=== PATIENT | male | born 1990 | race Hispanic/Latino ===

== ENCOUNTER 2024-05-13 20:20 | Emergency (ER) | payer BC ==
[~2024-05-13] VITALS: Ht 160 cm; Wt 68.0 kg
[2024-05-13] MEDS: PANTOPrazole 40 MG/VIAL IVP ONE (20:49)
[2024-05-13] MEDS: morPHINE 4 MG SYG IVP ONE (20:49)
[2024-05-13] MEDS: ondanSETRON 4MG INJ IVP ONE (20:51)
[2024-05-13 20:57] LABS: BASOPHILS # (AUTO) 0.04 K/uL (0.00-0.20); BASOPHILS % (AUTO) 0.5 % (0.0-5.0); EOSINOPHILS # (AUTO) 0.02 K/uL (0.00-0.70); EOSINOPHILS % (AUTO) 0.2 % (0.0-8.0); IMMATURE GRANULOCYTE ABSOLUTE 0.04 K/uL (0-1); LYMPHOCYTES # (AUTO) 3.2 K/uL (1.0-4.8); LYMPHOCYTES % (AUTO) 38.5 % (21.0-51.0); MEAN CORPUSCULAR HGB CONC 34.1 g/dL (32.0-36.0); MONOCYTES # (AUTO) 0.5 K/uL (0.1-1.0); MONOCYTES % (AUTO) 5.8 % (3.0-13.0); NEUTROPHILS # (AUTO) 4.6 K/uL (1.8-7.7); NEUTROPHILS % (AUTO) 54.5 % (40.0-77.0); PLATELET COUNT (AUTO) 297 K/uL (130-400); WHITE BLOOD COUNT (AUTO) 8.4 K/uL (4.8-10.8)
[2024-05-13 21:01] LABS: ADD UA MICROSCOPIC NO; APPEARANCE,URINE CLEAR (CLEAR); BILIRUBIN,URINE NEGATIVE (NEGATIVE); COLOR,URINE COLORLESS (YELLOW); GLUCOSE, URINE (UA) NEGATIVE (NEGATIVE); KETONES,URINE NEGATIVE (NEGATIVE); LEUKOCYTE ESTERASE ,URINE NEGATIVE Leu/uL (NEGATIVE); NITRATE,URINE NEGATIVE (NEGATIVE); OCCULT BLOOD,URINE NEGATIVE (NEGATIVE); PROTEIN,URINE NEGATIVE (NEGATIVE); UROBILINOGEN,URINE 0.2 mg/dL (0.2-1.0)
[2024-05-13 21:08] LABS: AMPHET/METH SCREEN,URINE NEGATIVE (NEGATIVE); BARBITURATE SCREEN, URINE NEGATIVE (NEGATIVE); BENZODIAZEPINES SCREEN,URINE NEGATIVE (NEGATIVE); CANNABINOID SCREEN,URINE NEGATIVE (NEGATIVE); COCAINE SCREEN,URINE NEGATIVE (NEGATIVE); CREATININE 0.9 mg/dL (0.5-1.3); OPIATE SCREEN,URINE NEGATIVE (NEGATIVE); PHENCYCLIDINE SCREEN,URINE NEGATIVE (NEGATIVE)
[2024-05-13 21:13] LABS: ALBUMIN 4.1 g/dL (3.5-5.0); BILIRUBIN,DIRECT 0.2 mg/dL (0.0-0.3); BILIRUBIN,TOTAL 0.3 mg/dL (0.2-1.0); TOTAL PROTEIN, SERUM 8.4 g/dL (6.0-8.3)
[2024-05-13] MEDS ORDERED: IOHEXOL-350 75 ML VIAL IV ONE (21:26)
[2024-05-13] MEDS: 0.9%NACL 1000ML 1,000 ML IV ONE (21:29)
[2024-05-13] MEDS: hydroMORPHone 0.5 MG SYG (0.5MG/0.5ML) IVP ONE (21:33)
[2024-05-13 21:41] VITALS: TEMP 97
--- NOTE | 2024-05-13 22:38 | HMCIMG ---
CT ABDOMEN/PELVIS W/CONTRAST HISTORY: Upper abdominal pain COMPARISON: None TECHNIQUE: Multiple sequential axial images of the abdomen and pelvis were obtained from the dome of the diaphragm through symphysis pubis. Patient was given 75 cc of Omnipaque through intravenous route. Oral contrast was not given. FINDINGS: No pleural effusion is seen bilaterally. There is no evidence of parenchymal disease or pulmonary nodule of the visualized lower lungs. Degenerative changes of the thoracolumbar spine are present. The heart is not enlarged. Liver measures 14.3 cm. Postcholecystectomy changes are seen. The liver, spleen, adrenal glands and pancreas are unremarkable. There is no evidence of hydronephrosis bilaterally. No evidence of renal stone is seen. Fecal material is seen in the colon. There are normal size retroperitoneal and mesenteric lymph nodes. No ascites is seen. No CT evidence of acute appendicitis is seen. Clinical correlation is recommended. Pelvic sidewalls are symmetric bilaterally. Bladder is well distended without wall thickening. IMPRESSION: 1. No acute findings. CT was performed with one or more following dose reduction techniques: automated exposure control, adjustment of the mA and kv according to patient's size, or use of a iterative reconstruction technique.
[2024-05-13 22:59] VITALS: BP 138/80; PULSE 84; RESP 18; O2SAT 97
[2024-05-13] MEDS ORDERED: ONDA-243 PO (23:11)
[2024-05-13] MEDS ORDERED: PANT40TA55 PO (23:11)
--- NOTE | 2024-05-13 23:12 | ERN ---
ED Note History of Present Illness Stated Complaint: CP Chief Complaint: Abdominal Pain Time Seen by MD: 20:23 Time Seen by Midlevel: 20:33 Dictation: The patient is a 34-year-old with a history of cholecystectomy who presents to the emergency department with complaints of epigastric abdominal pain onset 20 minutes prior to arrival. Patient denies any nausea, vomiting, diarrhea, constipation, fevers. Allergies: Coded Allergies: No Known Allergies (Unverified Allergy, Unknown, 05/13/24) Past Medical History Past Medical History: No Pertinent History Surgical History: Cholecystectomy RN Note Reviewed/Agreed w/PFSH: Yes Review of System Dictation Constitutional: Negative for fever,chills, and weight loss Eyes: Negative for injury, pain,redness, and discharge ENT: Negative for injury,pain or swelling Cardiovascular: Negative for chest pain, palpitations, and edema Respiratory: Negative for shortness of breath, cough, and wheezing, Abdomen/GI: Negative for nausea, vomiting, diarrhea, and constipation positive for abdominal pain Back: Negative for injury and pain : Negative for injury, bleeding and discharge MS/Extremity: Negative for injury and deformity Skin: Negative for rash, and discoloration Neuro: Negative for headache, weakness, numbness, tingling, and seizure Psych: Negative for suicide ideation, homicidal ideation, and hallucinations Initial Vital Sign VS Vital Signs Date Time Temp Pulse Resp B/P (MAP) Pulse Ox O2 Delivery O2 Flow Rate FiO2 05/13/24 20:21 97.3 104 20 131/82 100 Room Air 05/13/24 20:41 0 21 Physical Exam Dictation Vital Signs reviewed General Appearance: Alert, oriented x 3, no acute distress, well developed, nourished. Head and Face: non-traumatic. Eyes: PERRL, pink conjunctivas, eyelid no trauma, anterior chamber with arcus senilis. Ears: Pinnas intact and no signs of trauma or erythema ear canals clear and no discharge TM no erythema Nose: No discharge, no bleeding. Oropharynx: Mouth normal, tongue pink. pharynx clear,no erythema, tonsils no exudates, no abscesses noted, mucous membrane moist Neck: Supple, non-tender, no thyromegaly, no masses, no JVD, no bruits Breast:Deferred Chest:No tenderness, no crepitus, no paradoxical movement, no retractions Lungs:Clear, well-ventilated, symmetric, no rales, no wheezing, no rhonchi, no stridor, good breath sounds bilaterally Heart: Regular rate, regular rhythm, no murmur, no gallops Vascular: no peripheral edema, Abdomen: Soft, positive bowel sounds, nondistended, no guarding, nontender, no rebound, no masses no hepatomegaly, no splenomegaly, no Zuniga's sign, no hernias. Rectal: Deferred Genital: Deferred Neurological: Normal speech, motor function intact, sensory function intact Musculoskeletal: Neck nontender, full range of motion, back nontender, full range of motion, Extremities: nontender, full range of motion Skin: Color pink, dry, no turgor, no rash, no lacerations, no abrasions, no contusions. Lymphatic: Deferred Results (Laboratory/Radiology) Laboratory/Radiology Laboratory Tests Test 05/13/24 20:47 White Blood Count 8.4 K/uL (4.8-10.8) Red Blood Count 6.00 MIL/uL (4.50-6.20) Hemoglobin 17.4 g/dL (14.0-18.0) Hematocrit 51.0 % (42-54) Mean Corpuscular Volume 85.0 fL (79-99) Mean Corpuscular Hemoglobin 29.0 pg (27.0-33.0) Mean Corpuscular Hemoglobin Concent 34.1 g/dL (32.0-36.0) Red Cell Distribution Width 12.0 % (11.0-15.5) Platelet Count 297 K/uL (130-400) Mean Platelet Volume 10.2 fL (7.5-10.5) Immature Granulocyte % (Auto) 0.5 % (0-1) Neutrophils (%) (Auto) 54.5 % (40.0-77.0) Lymphocytes (%) (Auto) 38.5 % (21.0-51.0) Monocytes (%) (Auto) 5.8 % (3.0-13.0) Eosinophils (%) (Auto) 0.2 % (0.0-8.0) Basophils (%) (Auto) 0.5 % (0.0-5.0) Neutrophils # (Auto) 4.6 K/uL (1.8-7.7) Lymphocytes # (Auto) 3.2 K/uL (1.0-4.8) Monocytes # (Auto) 0.5 K/uL (0.1-1.0) Eosinophils # (Auto) 0.02 K/uL (0.00-0.70) Basophils # (Auto) 0.04 K/uL (0.00-0.20) Absolute Immature Granulocyte (auto 0.04 K/uL (0-1) Nucleated Red Blood Cells 0.0 % (0.0-0.19) Urine Color COLORLESS (YELLOW) Urine Appearance CLEAR (CLEAR) Urine pH 5.0 (5.0-8.0) Urine Specific Muse 1.005 (1.001-1.031) Urine Protein NEGATIVE mg/dL (NEGATIVE) Urine Glucose (UA) NEGATIVE mg/dL (NEGATIVE) Urine Ketones NEGATIVE mg/dL (NEGATIVE) Urine Occult Blood NEGATIVE (NEGATIVE) Urine Nitrate NEGATIVE (NEGATIVE) Urine Bilirubin NEGATIVE mg/dL (NEGATIVE) Urine Urobilinogen 0.2 mg/dL (0.2-1.0) Urine Leukocyte Esterase NEGATIVE Missy/uL Sodium Level 138 mmol/L (136-145) Potassium Level 4.0 mmol/L (3.5-5.1) Chloride Level 100 mmol/L (101-111) L Carbon Dioxide Level 28 mmol/L (21-32) Blood Urea Nitrogen 12 mg/dL (7-18) Creatinine 0.9 mg/dL (0.5-1.3) Glomerular Filtration Rate Calc 116 mL/min (>90) Random Glucose 95 mg/dL (70-105) Total Calcium 8.9 mg/dL (8.5-10.1) Total Bilirubin 0.3 mg/dL (0.2-1.0) Direct Bilirubin 0.2 mg/dL (0.0-0.3) Aspartate Amino Transf (AST/SGOT) 52 U/L (10-37) H Alanine Aminotransferase (ALT/SGPT) 54 U/L (12-78) Alkaline Phosphatase 71 U/L (50-136) Total Protein 8.4 g/dL (6.0-8.3) H Albumin 4.1 g/dL (3.5-5.0) Lipase 130 U/L (16-77) H Urine Opiates Screen NEGATIVE (NEGATIVE) Urine Barbiturates Screen NEGATIVE (NEGATIVE) Urine Phencyclidine Screen NEGATIVE (NEGATIVE) Urine Amphetamines Screen NEGATIVE (NEGATIVE) Urine Benzodiazepines Screen NEGATIVE (NEGATIVE) Urine Cocaine Screen NEGATIVE (NEGATIVE) Urine Marijuana (THC) Screen NEGATIVE (NEGATIVE) Labs Reviewed?: Yes ED Course ED Course Orders Procedure Category Date Status Time Cbc With Differential LAB 05/13/24 Complete 20:33 Urinalysis Profile LAB 05/13/24 Complete 20:33 0.9%Nacl 1000ml (Ns PHA 05/13/24 Complete 1000ml) 21:00 Morphine 4mg Syg PHA 05/13/24 Complete (Morphine 4mg Syg) 21:00 Ondansetron 4mg Inj PHA 05/13/24 Complete (Zofran 4mg Inj) 21:00 Pantoprazole 40mg Inj PHA 05/13/24 Complete (Protonix 40mg Inj 21:00 Lipase LAB 05/13/24 Complete 20:33 Basic Metabolic Panel LAB 05/13/24 Complete 20:33 Hepatic Function Panel LAB 05/13/24 Complete 20:33 Drug Screen Urine LAB 05/13/24 Complete 20:33 Ct Abdomen/Pelvis CT 05/13/24 Resulted W/Contrast 21:14 Hydromorphone 0.5mg PHA 05/13/24 Complete Syg (Dilaudid 0.5mg 21:30 Iohexol (Omnipaque) PHA 05/13/24 Complete 21:26 Current Medications Medications (Trade) Dose Ordered Sig/Xavier Route PRN Reason Start Time Stop Time Status Last Admin Dose Admin Hydromorphone HCl (DiLAUDid 0.5MG INJ) 0.5 mg ONCE ONCE IVP 05/13/24 21:30 05/13/24 21:31 DC 05/13/24 21:33 Iohexol (Omnipaque) 75 ml STK-MED ONCE IV 05/13/24 21:26 05/13/24 21:28 DC Morphine Sulfate (morPHINE 4MG SYG) 4 mg ONCE ONCE IVP 05/13/24 21:00 05/13/24 21:01 DC 05/13/24 20:49 Ondansetron HCl (zoFRAN 4MG INJ) 4 mg ONCE ONCE IVP 05/13/24 21:00 05/13/24 21:01 DC 05/13/24 20:51 Pantoprazole Sodium (PROTonix 40MG INJ) 40 mg ONCE ONCE IVP 05/13/24 21:00 05/13/24 21:01 DC 05/13/24 20:49 Sodium Chloride 1,000 ml @ 0 mls/hr ONCE ONCE IV 05/13/24 21:00 05/13/24 21:01 DC 05/13/24 21:29 Vital Signs Date Time Temp Pulse Resp B/P (MAP) Pulse Ox O2 Delivery O2 Flow Rate FiO2 05/13/24 22:59 84 18 138/80 97 Room Air* 0 21 05/13/24 21:41 97.0 90 20 143/84 97 Room Air* 0 21 05/13/24 20:41 97.3 104 18 117/78 97 Room Air* 0 21 05/13/24 20:21 97.3 104 20 131/82 100 Room Air Medical Decision Making MDM The patient is a 34-year-old with a history of cholecystectomy who presents to the emergency department with complaints of epigastric abdominal pain onset 20 minutes prior to arrival. Patient denies any nausea, vomiting, diarrhea, constipation, fevers. CBC showed no leukocytosis, no anemia, chemistry showed mild hypochloremia, slightly elevated lipase. CT abdomen showed no acute pathology. Patient reassessed and reports feeling better. Spoke to patient about the possibility of admission for slightly elevated lipase. At this time patient does not want to be admitted in with rather be discharged home. Patient reports he is flying out of town. Patient no acute distress, nontoxic appearance. Differential diagnosis: Gastritis, gastroenteritis, pancreatitis, electrolyte imbalance Need for hospitalization: Patient does not meet criteria for hospitalization. There are no social concerns with this patient. DX & DISP Disposition: Discharge Departure Impression: Primary Impression: Gastritis Additional Impressions: Elevated lipase, Abdominal pain Condition: Stable Scripts Ondansetron (Ondansetron Odt) 4 Mg Tab.rapdis 4 MG PO Q6HPRN PRN for nausea, #16 TAB 0 Refills Prov: OHSOULEYMANE PATTERN ILLUSTRATOR 05/13/24 Pantoprazole Sodium (Protonix) 40 Mg Ectab 1 TAB PO DAILY for 30 Days, #30 TAB 0 Refills Prov: OHSOULEYMANE PATTERN ILLUSTRATOR 05/13/24 Additional Instructions: Please follow up with your primary doctor in 1-2 days. Please return to ER if symptoms worsen. FOLLOW-UP WITH PRIMARY CARE PROVIDER IN 1 TO 2 DAYS. TAKE MEDICATIONS DIRECTED HERE IN THE EMERGENCY ROOM. OKAY TO CONTINUE HOME MEDICATIONS UNLESS OTHERWISE DISCUSSED DURING YOUR VISIT IN THE EMERGENCY ROOM TODAY. RETURN TO YOUR NEAREST EMERGENCY ROOM IF SYMPTOMS WORSEN OR IF THERE IS NO IMPROVEMENT. CALL 911 IF YOU NEED IMMEDIATE ASSISTANCE. TAKE TYLENOL OR MOTRIN [id number] NEEDED AND IF NO CONTRAINDICATIONS ARE PRESENT. INCREASE ORAL HYDRATION. A WOUND CULTURE OR URINE CULTURE WAS ORDERED HERE IN THE EMERGENCY ROOM DEPARTMENT PLEASE FOLLOW-UP WITH PRIMARY CARE PROVIDER AND ADVISE THEM TO GET REPEAT PORTS FROM OUR FACILITY. IF YOU HAD ANY CASPER WRAP/SPLINTS THAT WERE APPLIED HERE, PLEASE DO NOT REMOVE THEM UNTIL YOU SEE YOUR PRIMARY CARE OR SPECIALTY. Referrals: SELF,REFERRAL (PCP) Time of Disposition: 23:11 I have reviewed the case, and I agree with, Diagnosis and Plan SOULEYMANE [place] May 13, 2024 23:12
== END 2024-05-13 23:24 | disposition home or self-care (01) ==
LOC: EDH 20:20
DX: K29.70 Gastritis, unspecified, without bleeding (principal); R74.8 Abnormal levels of other serum enzymes; Z79.899 Other long term (current) drug therapy; Z90.49 Acquired absence of other specified parts of digestive tract
CPT/HCPCS: 99284; 74177; 96374; 96375; 80076; 80048; 80305; 83690; 85025; 36415; 81003; J1171; J7030; J2405; J2270; J2470; Q9967